=== PATIENT | male | born 1985 | race Caucasian/White ===

== ENCOUNTER 2024-01-10 07:48 | Emergency (ER) | payer BC, SELFPAY ==
--- NOTE | 2024-01-10 07:59 | ED.NAVMDI ---
HPI - Nausea/Vomiting/Diarrhea General Chief complaint: Nausea/Vomiting/Diarrhea Stated complaint: vomiting Time Seen by Provider: 01/10/24 07:58 Source: patient Mode of arrival: ambulatory Limitations: no limitations History of Present Illness HPI Narrative: 38-year-old male, smoker with a history of marijuana use presents to the ER with a 2 day history of -- nausea with multiple episodes of vomiting -- diffuse abdominal pain. pain is worst in the periumbilical region. no radiation of the pain. Pain is continuous. -- multiple episodes of watery diarrhea Patient thinks his symptoms started after eating Thai food. No other family members have similar symptoms MD elicited complaint: nausea, vomiting, diarrhea and abdominal pain Onset (ago): day(s) ( symptoms started yesterday morning) Description of diarrhea: watery Associated nausea: Yes Associated abdominal pain: Yes Location of pain: diffuse Radiation: periumbilical Pain consistency: constant Severity: moderate Quality: aching Exacerbating factors: none Relieving factors: none Associated symptoms: myalgias and cough Related Data Allergies Allergy/AdvReac Type Severity Reaction Status Date / Time No Known Allergies Allergy Verified 01/10/24 08:14 Review of Systems Review of Systems: All systems reviewed & are unremarkable except as noted in HPI and below Constitutional: Constitutional: Reports as per HPI, Reports no additional constitutional complaints and Reports headache(s) Eyes: Eyes: Reports as per HPI and Reports no additional eye complaints ENT: Reports system reviewed and no additional complaints, except as documented, Reports as per HPI and Reports headache(s) Cardiovascular: Cardiovascular: Reports as per HPI and Reports no additional cardiovascular complaints Respiratory: Respiratory: Reports as per HPI and Reports no additional respiratory complaints Gastrointestinal: Gastrointestinal: Reports as per HPI, Reports no additional gastrointestinal complaints, Reports diarrhea, Reports nausea and Reports vomiting Genitourinary: Genitourinary: Reports no additional male genitourinary complaints and Reports as per HPI Musculoskeletal: Musculoskeletal: Reports no additional musculoskeletal complaints and Reports as per HPI Integumentary/Breasts: Skin/Breast: Reports system reviewed and no additional complaints, except as docu and Reports as per HPI Neurologic: Reports system reviewed and no additional complaints, except as documented and Reports as per HPI Psychiatric: Psychiatric: Reports no additional psychiatric complaints and Reports as per HPI Endocrine: Endocrine: Reports no additional endocrine complaints and Reports as per HPI Hematologic/Lymphatic: Hematologic/Lymphatic: Reports no additional hematologic/lymphatic complaints and Reports as per HPI Allergic/Immunologic: Allergic/Immunologic: Reports no additional allergic/immunologic complaints and Reports as per HPI [facility] Social History Social History (Updated 01/10/24 @ 08:06 by Jose Kuhn MD) Social History: Smoker, marijuana use Exam Narrative: hypertensive with a blood pressure of 160/99 Const: General: healthy appearing Nutritional Appearance: average body habitus HENMT: Head: normal to inspection, No palpable skull fracture present, normocephalic and atraumatic Ears: hearing grossly normal bilaterally and external ears normal Face/Nose/Sinus: Normal external nose present and Normal nares present Face and sinus: normal facial exam and sinuses nontender Mouth: Yes Normal oral and palatal mucosa present, Yes lip normal, Yes tongue normal and Yes moist mucous membranes Throat: posterior oropharynx normal Eyes: General: appearance normal, both eyes and all related structures Visual Durham: normal visual durham by confrontation Periorbital: periorbital findings normal Eyelids: eyelids normal Sclera: sclerae normal Cornea: corneas normal Pupils: Equal, round and r
[2024-01-10 08:15] VITALS: BP 126/80; PULSE 65; RESP 20; TEMP 37.1; O2SAT 98
[2024-01-10] MEDS: LACTATED RINGERS 1,000 ML 999 ML IV CONT (08:23)
[2024-01-10] MEDS: PROCHLORPERAZINE EDISYLATE 10 MG/2 ML VIAL IM (08:24)
[2024-01-10 08:31] LABS: Basophils Absolute Auto 0.02 K/mm3 (0.00-0.10); Basophils Percent Auto 0.3 % (0.0-1.0); Eosinophils Absolute Auto 0.02 K/mm3 (0.02-0.50); Eosinophils Percent Auto 0.3 % (1.0-6.0); Hematocrit 50.5 % (40.0-54.0); Hemoglobin 16.9 g/dL (14.0-18.0); Immature Granulocyte Absolute 0.03 K/mm3 (0.00-0.00); Immature Granulocyte Percent A 0.4 % (0.0-0.0); Lymphocytes Absolute Auto 0.62 K/mm3 (1.10-4.50); Mean Corpuscular HGB Conc 33.5 g/dL (32-36); Mean Corpuscular Hemoglobin 29.9 pg (27.0-31.0); Mean Corpuscular Volume 89.2 fL (78.0-102.0); Mean Platelet Volume 9.4 fl (8.7-11.0); Monocytes Absolute Auto 0.61 K/mm3 (0.10-0.90); Monocytes Percent Auto 7.8 % (2.0-11.0); Neutrophils Absolute Auto 6.49 K/mm3 (1.70-7.20); Neutrophils Percent Auto 83.2 % (50.0-70.0); Platelet Count Result 223 K/mm3 (150-420); Red Blood Count 5.66 M/mm3 (4.70-6.10); Red Cell Distribution Width 11.9 % (11.6-14.4); White Blood Count 7.8 K/mm3 (4.8-10.8)
[2024-01-10 08:50] LABS: Alanine Aminotransferase 32 U/L (16-63); Albumin Level 4.7 g/dL (3.4-5.0); Alkaline Phosphatase 78 U/L (46-116); Anion Gap 17 mmol/L (4-12); Aspartate Amino Transferase 22 U/L (15-37); Bilirubin,Total 1.2 mg/dL (0.00-1.00); Blood Urea Nitrogen 19 mg/dL (7-18); Calcium 9.2 mg/dL (8.5-10.1); Carbon Dioxide 21 mmol/L (21-32); Chloride 98 mmol/L (98-108); Estimated CRCL calculation 84 ml/min; Estimated Glomerular Filt Rate > 60; Glucose 119 mg/dL (70-99); Lipase 27 U/L (16-77); Magnesium 1.9 mg/dL (1.8-2.4); Osmolality Calculated 285 mOsm/kg (285-295); Potassium 3.7 mmol/L (3.5-5.1); Sodium 136 mmol/L (136-145); Total Protein 8.7 g/dL (6.4-8.2)
[2024-01-10 08:51] LABS: Troponin I < 4.0 ng/L (0.00-60.4)
[2024-01-10 08:53] LABS: Lactic Acid Reflex 0.9 mmol/L (0.4-2.0)
[2024-01-10 08:57] LABS: Influenza A QL RT-PCR Negative (Negative); Influenza B QL RT-PCR Negative (Negative); RSV RNA, RT-PCR Negative (Negative); SARS-CoV-2 RNA PCR Negative (Negative)
[2024-01-10 09:52] VITALS: BP 136/74; PULSE 74; RESP 20; TEMP 37.2; O2SAT 97
== END 2024-01-10 09:52 | disposition home or self-care (01) ==
PROVIDERS: Emergency Provider Internal Medicine Critical Care Medicine
DX: K52.9 Noninfective gastroenteritis and colitis, unspecified (principal); Z20.822 Contact with and (suspected) exposure to COVID-19
CPT/HCPCS: 36415; 80053; 83605; 83690; 83735; 84484; 85025; 85610; 87637; 96360; 96372; 99284; J0780; J7120

== ENCOUNTER 2024-12-24 22:00 | Emergency (ER) | payer BC, SELFPAY ==
--- NOTE | ~2024-12-24 | CT_ITS ---
CT abdomen pelvis wo con Ordering provider: Jonnie Jim MD History: 39 years Male with . RT FLANK PAIN X1DAY,MICROHEMATURIA . Comparison: None. Technique: CT abdomen and pelvis without IV and without oral contrast. Automated exposure control and iterative reconstruction technique were employed. The dose-length product was 539.86 mGy-cm. Findings: VISUALIZED LOWER CHEST: Normal. UPPER ABDOMINAL ORGANS: Liver: Normal. Gallbladder: Normal. Spleen: Normal. Stomach/duodenum: Normal. Pancreas: Normal. Adrenals: Normal. Kidneys: Right moderate hydronephrotic changes with right hydroureter. Stone is seen in the right low er ureter measuring 2 mm. The left kidney is normal. PELVIC ORGANS: The bladder is underfilled. BOWEL AND MESENTERY: Colon: No evidence of diverticulitis.. Normal appendix. Small Bowel: Normal. No obstruction. Peritoneum/mesentery: No free air or free fluid. No mesenteric lymphadenopathy. RETROPERITONEUM: Normal aorta. No retroperitoneal lymphadenopathy. MUSCULOSKELETAL: Superficial soft tissues: The superficial soft tissues are normal. Bones: Normal spine. IMPRESSION: 1. Right lower ureteric stone with right moderate hydronephrotic changes. 2. No evidence of appendicitis, diverticulitis or intestinal obstruction. Reviewed, dictated and finalized at location A.
[2024-12-24 22:01] VITALS: BP 186/103; PULSE 58; RESP 18; TEMP 36.5; O2SAT 99
--- OUTSIDE RECORDS SUMMARY | 2024-12-24 22:02 | XMS_ITS | Clinical Summary ---
Author Organization [facility] Address [address] [place] [address] Care Team Providers Care Software Product Manager Name Role Phone None, Provider MD Primary Care Provider Unavaila ble Allergies No known active allergies Medications No known medications Social History Tobacco Use Types Packs/Day Years Used Date Smoking Tobacco: Never Smokeless Tobacco: Never Tobacco Cessation:Counseling Given: Not Answered Alcohol Use Standard Drinks/Week Comments Yes 0 (1 standard drink = 0.6 oz pur e alcohol) Sex and Gender Information Value Date Recorded Sex Assigned at Not on file Legal Sex Male 12:45 PM CDT Gender Identity Not on file Sexual Orientation Not on file Last Filed Vital Signs Vital Sign Reading Time Taken Comments Blood Pressure 133/95 10/06/2022 2: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 RESTUARANT CREW WORKER Pulse 74 10/06/2022 2:42 PM RESTUARANT CREW WORKER Temperature 36.7 C (98.1 F) 10/06/2022 2:42 PM RESTUARANT CREW WORKER Respiratory Rate 18 10/06/2022 2:42 PM RESTUARANT CREW WORKER Oxygen Saturation 99% 10/06/2022 2:42 PM RESTUARANT CREW WORKER Inhaled Oxygen Concentration - - Weight 81.6 kg (180 lb) 10/06/2022 2:42 PM RESTUARANT CREW WORKER Height 182.9 cm (6') 10/06/2022 2:42 PM RESTUARANT CREW WORKER Body Mass Index 24.41 10/06/2022 2:42 PM RESTUARANT CREW WORKER Plan of Treatment Health Maintenance Due Date Last Done Comments Annual Physical 1988 DTaP, Tdap and Td Vaccines (5 - Tdap) 1996 03/26/1990, 05/24/1989, 02/12/1986, Additional history exists Hepatitis C 2003 Hepatitis B Vaccines (1 of 3 - 19+ 3-dose series) 2004 COVID-19 Vaccine (2023- season) 2024 HPV Vaccines Aged Out No longer eligi ble based on patient's age to complete this topic Meningococcal B Vaccine Aged Out No l onger eligible based on patient's age to complete this topic Meningococcal Vaccine Aged Out No elida gerald eligible based on patient's age to complete this topic Pneumococcal Vaccine: Pediatrics (0 to 5 Years) and At-Risk Patients (6 to 49 Years) Aged Out No longer eligible based on patient's age to complete this topic RSV Immunizations Under 20 Months Aged Out No longer eligible based on patient's age to complete this topic [place] [address] [place] [address] Care Teams Software Product Manager Relationship Specialty Start Date End Date None, Provider, PCP - General 03/15/22
--- NOTE | 2024-12-24 22:04 | PC.NURSE ---
pt given urinal for urine specimen
--- NOTE | 2024-12-24 22:17 | PC.NURSE ---
DR NEWMAN AT THE BEDSIDE. PATIENT PACING IN THE ROOM. STATES PAIN IS RADIATING TO RIGHT GROIN AREA
[2024-12-24 22:22] LABS: Add Urine Microscopic? YES; Bilirubin Urine Negative (Negative); Blood Urine 3+ (Negative); Color Urine Yellow (Yellow); Glucose Urine UA Negative (Negative); Ketones Urine Negative (Negative); Leukocyte Esterase Ur Negative LEU/UL (Negative); Nitrate Urine Negative (Negative); Protein Urine Negative (Negative); Specific Grav Ur 1.025 (1.010-1.020); Urobilinogen Urine 0.2 mg/dL (0.2-1.0)
[2024-12-24 22:27] LABS: Appearance Urine Sl Cloudy (Clear); Bacteria Urine Trace /hpf; RBC Urine 51-100 /hpf (0-2); Squamous Epithelial Cell Urine Rare /hpf (Few); WBC Urine None seen /hpf (0-3)
--- NOTE | 2024-12-24 22:29 | PC.NURSE ---
PATIENT TRANSPORTED TO CT VIA WHEEL CHAIR
--- OUTSIDE RECORDS SUMMARY | 2024-12-24 22:33 | XMS_ITS | Clinical Summary ---
Author Organization [facility] Address [address] [place] [address] Care Team Providers Care Carton Filling Machine Operator Name Role Phone None, Provider MD Primary [...] Comments Blood Pressure 133/95 10/06/2022 2:42 PM TECHNICAL RECRUITER Pulse 74 10/06/2022 2:42 PM TECHNICAL RECRUITER Temperature 36.7 C (98.1 F) 10/06/2022 2:42 PM TECHNICAL RECRUITER Respiratory Rate 18 10/06/2022 2:42 PM TECHNICAL RECRUITER Oxygen Saturation 99% 10/06/2022 2:42 PM TECHNICAL RECRUITER Inhaled Oxygen Concentration - - Weight 81.6 kg (180 lb) 10/06/2022 2:42 PM TECHNICAL RECRUITER Height 182.9 cm (6') 10/06/2022 2:42 PM TECHNICAL RECRUITER Body Mass Index 24.41 10/06/2022 2:42 PM TECHNICAL RECRUITER Plan of Treatment Health Maintenance Due Date [...] patient's age to complete this topic [place] [address] [place] [address] Care Teams Carton Filling Machine Operator Relationship Specialty Start Date End Date None, Provider, PCP - General 03/15/22
[2024-12-24 22:34] LABS: Basophils Absolute Auto 0.12 K/mm3 (0.00-0.10); Basophils Percent Auto 0.9 % (0.0-1.0); Eosinophils Absolute Auto 0.22 K/mm3 (0.02-0.50); Eosinophils Percent Auto 1.6 % (1.0-6.0); Hematocrit 43.6 % (40.0-54.0); Hemoglobin 14.8 g/dL (14.0-18.0); Immature Granulocyte Absolute 0.05 K/mm3 (0.00-0.00); Immature Granulocyte Percent A 0.4 % (0.0-0.0); Lymphocytes Absolute Auto 4.42 K/mm3 (1.10-4.50); Lymphocytes Percent Auto 32.4 % (18.0-42.0); Mean Corpuscular HGB Conc 33.9 g/dL (32-36); Mean Corpuscular Hemoglobin 30.5 pg (27.0-31.0); Mean Corpuscular Volume 89.7 fL (78.0-102.0); Mean Platelet Volume 9.6 fl (8.7-11.0); Monocytes Absolute Auto 1.11 K/mm3 (0.10-0.90); Monocytes Percent Auto 8.1 % (2.0-11.0); Neutrophils Absolute Auto 7.71 K/mm3 (1.70-7.20); Neutrophils Percent Auto 56.6 % (50.0-70.0); Platelet Count Result 292 K/mm3 (150-420); Red Blood Count 4.86 M/mm3 (4.70-6.10); White Blood Count 13.6 K/mm3 (4.8-10.8)
--- NOTE | 2024-12-24 22:34 | PC.NURSE ---
PATIENT HAS RETURNED TO ROOM VIA WHEEL CHAIR. DIAPHORETIC AND PACING IN THE ROOM
[2024-12-24] MEDS: SODIUM CHLORIDE 0.9% IV 1,000 ML 999 ML IV CONT (22:39)
[2024-12-24] MEDS: KETOROLAC 30 MG/ML VIAL (*BKC) IV PUSH (22:39)
[2024-12-24] MEDS: ONDANSETRON INJ 4 MG/2 ML VIAL IV PUSH (22:39)
[2024-12-24 22:47] LABS: Alanine Aminotransferase 33 U/L (16-63); Alkaline Phosphatase 77 U/L (46-116); Anion Gap 11 mmol/L (4-12); Aspartate Amino Transferase 22 U/L (15-37); Bilirubin,Total 0.8 mg/dL (0.00-1.00); Blood Urea Nitrogen 9 mg/dL (7-18); Calcium 9.1 mg/dL (8.5-10.1); Carbon Dioxide 26 mmol/L (21-32); Chloride 105 mmol/L (98-108); Estimated CRCL calculation 82 ml/min; Estimated Glomerular Filt Rate > 60; Glucose 122 mg/dL (70-99); Osmolality Calculated 293 mOsm/kg (285-295); Potassium 3.5 mmol/L (3.5-5.1); Sodium 142 mmol/L (136-145); Total Protein 7.4 g/dL (6.4-8.2)
[2024-12-24 22:50] LABS: Lactic Acid Reflex 1.7 mmol/L (0.4-2.0)
--- NOTE | 2024-12-24 22:52 | PC.NURSE ---
PATIENT SITTING IN THE CHAIR IN THE ROOM. REPORTS THAT HE IS STARTING TO HAVE LESS PAIN. NOT DIAPHORETIC WHEN HE RETURNED FROM CT. GAVE PATIENT EMESIS BAG IN CASE HE NEEDS TO VOMIT
--- NOTE | 2024-12-24 23:38 | PC.NURSE ---
PATIENT REPORTS THAT HIS PAIN IS STARTING TO COME BACK. DR NEWMAN WAS NOTIFIED
[2024-12-24] MEDS: MORPHINE SULFATE (*CRX) 2 MG/ML INJ IV PUSH (23:50)
--- NOTE | 2024-12-25 00:10 | PC.NURSE ---
RESTING QUIETLY ON STRETCHER. DR NEWMAN NOTIFIED THAT CT RESULTS ARE POSTED.
--- NOTE | 2024-12-25 00:19 | ED_ITS ---
HPI - Back Pain/Injury General Chief Complaint: Back Pain/Injury Stated Complaint: lower right quadrant pain Time Seen by Provider: 12/24/24 22:05 Source: patient Mode of arrival: ambulatory Limitations: no limitations History of Present Illness HPI Narrative: patient is a 39-year-old male with a significant past medical history that presents today with possible kidney stones. Patient has flank pain on the right side and says that he has never had a kidney stone before but he thinks he might be 1. He has flank pain right side since last 2 days. Is tender on the right side to touch. MD elicited complaint: back pain Onset (ago): day(s) Severity: moderate Pain scale (0-10): 5 Similar Symptoms Previously: No Quality: sharp Location: right flank Exacerbating factors: none Relieving factors: none Associated symptoms: denies other symptoms Related Data Allergies Allergy/AdvReac Type Severity Reaction Status Date / Time No Known Allergies Allergy Verified 12/25/24 00:25 Review of Systems 2 Review of Systems: All systems reviewed & are unremarkable except as noted in HPI and below Constitutional: Constitutional: Reports as per HPI and Reports no additional constitutional complaints Eyes: Eyes: Reports no additional eye complaints ENT: Reports system reviewed and no additional complaints, except as documented Cardiovascular: Cardiovascular: Reports no additional cardiovascular complaints Respiratory: Respiratory: Reports no additional respiratory complaints Gastrointestinal: Gastrointestinal: Reports no additional gastrointestinal complaints Genitourinary: Genitourinary: Reports no additional male genitourinary complaints Musculoskeletal: Musculoskeletal: Reports no additional musculoskeletal complaints Integumentary/Breasts: Skin/Breast: Reports system reviewed and no additional complaints, except as docu Neurologic: Reports system reviewed and no additional complaints, except as documented Psychiatric: Psychiatric: Reports no additional psychiatric complaints Endocrine: Endocrine: Reports no additional endocrine complaints Hematologic/Lymphatic: Hematologic/Lymphatic: Reports no additional hematologic/lymphatic complaints Allergic/Immunologic: Allergic/Immunologic: Reports no additional allergic/immunologic complaints PMFSH Social History Social History Social History: Smoker, marijuana use Exam 2 Const: General: healthy appearing Nutritional Appearance: well nourished Orientation/consciousness: patient oriented x3 Limitations: no limitations HENMT: Head: normal to inspection Ears: external ears normal F marco/Nose/Sinus: Normal external nose present Face and sinus: normal facial exam Eyes: Conjunctivae: conjunctivae normal Pupils: Equal, round and reactive pupils present EOM: EOMs intact bilaterally Direct Ophthalmoscopy: no photophobia Neck: Neck: normal visual inspection Chest: Chest palpation & inspection: normal inspection of the chest Resp: Effort & Inspection: normal respiratory effort Auscultation: clear to auscultation bilaterally Cardio: Rate: regular rate Rhythm: regular rhythm GI: GI Palp: Yes Soft to palpation : General: Yes CVA tenderness Back/Spine/Pelvis: Back: CVA tenderness Skin: General skin exam: normal color Rashes: no rashes Wounds: no wounds Neuro: General: patient oriented x3 Cranial nerves: Yes Nystagmus not present Speech: normal speech Gait exam (Neuro): Normal gait present Extrem: General: normal to inspection Psych: Mental Status: mental status grossly normal Affect: normal affect Attitude: cooperative Course Vital Signs Vital signs: Vital Signs Temperature 97.7 F 12/24/24 22:01 Pulse Rate 58 L 12/24/24 22:01 Respiratory Rate 18 12/24/24 22:01 Blood Pressure 186/103 H 12/24/24 22:01 Pulse Oximetry 99 12/24/24 22:01 Oxygen Delivery Room Air 12/24/24 22:01 Temperature 97.7 F 12/24/24 22:01 Pulse Rate 58 L 12/24/24 22:01 Respiratory Rate 18 12/24/24 22:01 Blood Pressure 186/103 H 12/24/24 22:01 Pulse Oximetry 99 12/24/24 22:01 Oxygen Delivery Room Air 12/24/24 22:01 MDM - Back Pain/Injury MDM Narrative Medical decision making narrative: Patient does seem to probably have a stone on the right side. He does have flank pain it is very tender on the right flank side. Will do a CTA of the abdomen and pelvis with no contrast to check for stones. If he does have stone will give him Flomax. Also him a shot of Toradol as well for the pain. He still had pain so gave him some morphine as well. Discussed with him to stay very hydrated as well. Differential Diagnosis Differential diagnosis: Likely other ( Kidney stone) Medical Records Attestation: I reviewed the patient's medical records. Lab Data Attestation: I reviewed the patient's lab results. 12/24/24 22:26 12/24/24 22:26 Labs: Lab Results 12/24/24 12/24/24 Range/Units 22:17 22:26 WBC 13.6 H (4.8-10.8) K/mm3 RBC 4.86 (4.70-6.10) M/mm3 Hgb 14.8 (14.0-18.0) g/dL Hct 43.6 (40.0-54.0) % MCV 89.7 (78.0-102.0) fL MCH 30.5 (27.0-31.0) pg MCHC 33.9 (32-36) g/dL RDW 12.0 (11.6-14.4) % Plt Count 292 (150-420) K/mm3 MPV 9.6 (8.7-11.0) fl Immature Gran % (Auto) 0.4 H (0.0-0.0) % Neut % (Auto) 56.6 (50.0-70.0) % Lymph % (Auto) 32.4 (18.0-42.0) % Borden % (Auto) 8.1 (2.0-11.0) % Eos % (Auto) 1.6 (1.0-6.0) % Baso % (Auto) 0.9 (0.0-1.0) % Lymph # (Auto) 4.42 (1.10-4.50) K/mm3 Borden # (Auto) 1.11 H (0.10-0.90) K/mm3 Eos # (Auto) 0.22 (0.02-0.50) K/mm3 Baso # (Auto) 0.12 H (0.00-0.10) K/mm3 Abs Immat Gran (auto) 0.05 H (0.00-0.00) K/mm3 Absolute Neuts (auto) 7.71 H (1.70-7.20) K/mm3 Absolute Nucleated RBC 0.00 (0.00-0.00) K/mm3 Nucleated RBC % 0.0 (0-0.0) % Sodium 142 (136-145) mmol/L Potassium 3.5 (3.5-5.1) mmol/L Chloride 105 (98-108) mmol/L Carbon Dioxide 26 (21-32) mmol/L Anion Gap 11 (4-12) mmol/L BUN 9 (7-18) mg/dL Creatinine 1.18 (0.70-1.30) mg/dL Estim Creat Clear Calc 82 ml/min Estimated GFR > 60 (59 - ) Glucose 122 H (70-99) mg/dL Calculated Osmolality 293 (285-295) mOsm/kg Lactic Acid 1.7 (0.4-2.0) mmol/L Calcium 9.1 (8.5-10.1) mg/dL Total Bilirubin 0.8 (0.00-1.00) mg/dL AST 22 (15-37) U/L ALT 33 (16-63) U/L Alkaline Phosphatase 77 (46-116) U/L Total Protein 7.4 (6.4-8.2) g/dL Albumin 4.0 (3.4-5.0) g/dL Urine Color Yellow (Yellow) Urine Appearance Sl cloudy A (Clear) Urine pH 6.0 (5.0-8.0) Ur Specific Marceline 1.025 H (1.010-1.020) Urine Protein Negative (Negative) Urine Glucose (UA) Negative (Negative) Urine Ketones Negative (Negative) Ur Blood (Man) 3+ H (Negative) Urine Nitrate Negative (Negative) Urine Bilirubin Negative (Negative) Urine Urobilinogen 0.2 (0.2-1.0) mg/dL Leukocyte Esterase Rfl Negative (Negative) BHAVNA/UL Urine RBC 51-100 H (0-2) /hpf Urine WBC None seen (0-3) /hpf Ur Squamous Epith Cells Rare (Few) /hpf Urine Bacteria Trace (None) /hpf Discharge Plan Discharge Clinical Impression: Kidney calculus Patient Disposition: Home Condition: Stable Instructions: Kidney Stones (ED) Patient Language: Bengali Prescriptions: New tamsulosin [Flomax] 0.4 mg capsule 0.4 mg PO DAILY Qty: 30 0RF No Action prochlorperazine maleate [Compazine] 10 mg tablet 10 mg PO Q8H PRN (Reason: nausea and vomiting) Qty: 20 0RF Follow-up/Referrals: Felix Maharaj MD [Primary Care Provider] - Time of Disposition: 00:25
[2024-12-25] MEDS: TAMSULOSIN HCL 0.4 MG CAPSULE PO (00:23)
[2024-12-25 00:28] VITALS: BP 144/96; PULSE 74; RESP 18; O2SAT 97
--- NOTE | 2024-12-25 00:28 | PC.NURSE ---
DR NEWMAN AT THE BEDSIDE
== END 2024-12-25 00:36 | disposition home or self-care (01) ==
PROVIDERS: Emergency Provider Family Medicine; PCP Family Medicine
DX: N20.0 Calculus of kidney (principal)
CPT/HCPCS: 36415; 74176; 80053; 81001; 83605; 85025; 96361; 96374; 96375; 99284; A9270; J1885; J2270; J2405; J7030